=== PATIENT | male | born 1995 | race Caucasian/White ===

== ENCOUNTER 2017-06-10 18:12 | Emergency (ER) | payer BC, OTHER ==
[~2017-06-10] VITALS: Ht 177.8 cm; Wt 124.7 kg
[~2017-06-10 18:12] MED LIST: ATEN50TA8 PO
[2017-06-10 18:22] VITALS: TEMP 37; Ht 177.8 cm; Wt 124.7 kg
--- NOTE | 2017-06-10 19:00 | DIAGNOSTIC IMAGING REPORT ---
L KNEE 3 VIEWS CLINICAL HISTORY: Left knee pain following fall. COMPARISON: Left knee radiographs March 12, 2015. FINDINGS: Postoperative findings consistent with ACL reconstruction are noted. Alignment of the left knee is anatomic anatomic. No acute fracture is identified. There is mild osteophytosis within the lateral and patellofemoral compartments. There may be a small left knee joint effusion. IMPRESSION: 1. No acute fracture. 2. Status post ACL reconstruction. 3. Suspected small left knee joint effusion. 4. Mild osteophytosis within the lateral and patellofemoral compartments. Electronically signed by: Alexy Lynch M.D. 06/10/2017 6:58 PM Dictated Date/Time: 06/10/2017 6:56 PM
[2017-06-10 19:26] VITALS: BP 136/89; PULSE 71; O2SAT 96
--- NOTE | 2017-06-11 20:50 | EMERGENCY ROOM VISIT NOTE ---
ED Visit Note First contact with patient: 18:25 Chief Complaint: Left knee pain. History of Present Illness: Mr. Terry is a 21-year-old white male who ambulates into the ED accompanied by a female friend complaining of left lateral knee pain. It was noted that the patient was wearing a knee brace on arrival to the ED. Patient reports in April 2015 he had left knee surgery for repair of an anterior cruciate ligament ligamentous and meniscus injury. Patient reports last night he was at work and slipped on ice and twisted his left knee. He also fell to the ground but did not fall on the knee. He reports at the time of the injury he felt a popping sensation over the lateral aspect of the knee. Since that time he's had continuous pain over the lateral joint line. He describes his pain as a sharp/piercing sensation. He rates his discomfort 8/10. The pain is nonradiating. He has not identified any aggravating or alleviating factors related to the pain. He has not taken any medication for pain prior to arrival at the hospital. He denies any associated back pain, pain, thigh pain, lower leg pain, ankle pain, foot pain, leg weakness /numbness/tingling Review of Systems: As noted above in history of present illness. Past Medical History: As previously noted, hypertrophic cardiomegaly, hypertension and status post hernia repair. Current Medications: Atenolol. Allergies to Medications: Patient denies. Social History: Patient is currently employed; he feels safe in his home environment; he denies tobacco use and admits to alcohol use. Physical Examination: Vital Signs: Date Time Temp Pulse Resp B/P (MAP) Pulse Ox O2 Delivery O2 Flow Rate FiO2 06/10/17 18:22 37.0 64 18 147/92 97 Room Air GENERAL: 21-year-old male in mild distress due to pain, nontoxic-appearing, afebrile and hemodynamically stable. NEUROLOGICAL: Awake, alert and oriented to person, place and time. Answering questions appropriately and following commands. Normal gait. SKIN: Warm, dry and pink. No soft tissue eruptions or trauma noted. RIGHT LOWER EXTREMITY: No gross bony deformity. No shortening or malrotation. No tenderness in the hip, thigh, lower leg, ankle or foot. No tenderness over the medial lateral joint lines. Negative bounce test. Negative patellar apprehension test. Negative ballottement test. No laxity of the collateral or cruciate ligaments; actually the anterior cruciate is slightly more restrictive then the right. Full range of motion in flexion and extension of the knee and plantar flexion and dorsiflexion of the ankle against resistance. Throughout the lower leg and foot the skin was warm and pink and capillary refill is brisk. He was able to distinguish light sensations through all dermatomes. ED Course: Patient is assessed as noted above. Patient's medication list was reviewed. Left Knee X-Rays: Were read by myself and the radiologist showing no acute fractures. Radiologist notes a small left knee joint effusion and reports mild osteophytosis to the lateral and patellofemoral compartments. Patient was offered knee immobilizer and nonweightbearing crutches and refused; patient reports he would rather use his knee brace. Patient was educated about today's findings and instructed on his treatment plan ; he verbalizes understanding and agreement with this plan. Clinical Impression: Left knee pain. Work related injury. Disposition: Patient discharged home in stable condition accompanied by female friends; prior to departure he was reassessed and rated his discomfort 6/10. Plan: Comfort measures were discussed with the patient including alternating ibuprofen and acetaminophen every 3 hours, ice, braced use and rest. Patient was signed off of work for 2 days and then follow-up with Workmen's Compensation for return to work. Patient was encouraged return ED for worsening/uncontrolled pain, uncontrolled swelling, leg weakness/numbness/tingling or any new/concerning symptoms.
== END 2017-06-10 19:24 | disposition home or self-care (01) ==
LOC: C.EDB 18:14 → C.EDD 19:24
DX: S89.92XA Unspecified injury of left lower leg, initial encounter (principal); M25.562 Pain in left knee; W00.0XXA Fall on same level due to ice and snow, initial encounter; Y99.0 Civilian activity done for income or pay